=== PATIENT | male | born 1945 | race Caucasian/White ===

== ENCOUNTER 2017-09-01 23:38 | Emergency (ER) | payer BC ==
[~2017-09-01] VITALS: Ht 172.7 cm; Wt 75.0 kg
[2017-09-01 23:45] VITALS: BP 184/82; TEMP 97.3
[2017-09-02] MEDS ORDERED: LANTUS SOLOS100 U/ML SQ (00:20)
[2017-09-02] MEDS ORDERED: BYSTOLIC2.5 MG PO (00:20)
[2017-09-02] MEDS ORDERED: PRAVACHOL 40MG40 MG PO (00:20)
[2017-09-02] MEDS ORDERED: NORVASC 5MG5 MG/TAB PO (00:20)
[2017-09-02] MEDS ORDERED: GLUCOPHAGE1000 MG PO (00:20)
[2017-09-02] MEDS ORDERED: SYNTHROID 0.0.025 MG PO (00:20)
[2017-09-02] MEDS ORDERED: NORVASC 10MG10 MG PO (00:20)
[2017-09-02] MEDS ORDERED: MOBIC15 MG PO (00:21)
[2017-09-02] MEDS ORDERED: PLAVIX 75MG TAB75 MG PO (00:21)
[2017-09-02] MEDS ORDERED: TRIAMCINOLONE A15 G1 TP (00:21)
[2017-09-02 01:22] VITALS: PULSE 64
== END 2017-09-02 01:23 | disposition home or self-care (01) ==
LOC: COL.ER 23:38
DX: N48.30 Priapism, unspecified (principal); I10 Essential (primary) hypertension; E11.9 Type 2 diabetes mellitus without complications; I25.10 Atherosclerotic heart disease of native coronary artery without angina pectoris; Z95.5 Presence of coronary angioplasty implant and graft; Z79.4 Long term (current) use of insulin; Z79.02 Long term (current) use of antithrombotics/antiplatelets; Z79.52 Long term (current) use of systemic steroids